=== PATIENT | female | born 1950 | race Caucasian/White ===

== ENCOUNTER 2016-12-19 13:24 | Emergency (ER) | payer SELFPAY ==
--- NOTE | 2016-12-19 16:36 | ED NURSING NOTES ---
Clinical Report - Nurses [facility] [place] [address] 12/19/2016 13:30 Patient: LOGAN DIAZ TRIAGE Triage time 13:11 Dec 19 2016. Acuity: LEVEL 3. Chief Complaint: ALTERED MENTAL STATUS. 13:12/19/16. Alert. No acute distress. SEPSIS SCREEN: Sepsis Screen. Negative (no infection suspected/documented). CHAO COMA SCORE: [place] Coma Scale: 15- eyes open spontaneously (4); best verbal response- oriented x 4 (5); best motor response- obeys commands (6). --13:29 Alicia Rock 13:12/19/16. BP: 122/61. HR: 68. RR: 21. O2 saturation: 100%. Temp: 98.0 F. Pain level now 0/10. --13:29 Alicia Rock 13:12/19/16. --13:29 Alicia Rock. Weight: 68 kg estimated. Height/Length: 64 inches Estimated. BMI: 25.8. --13:16 Alicia Rock. Medications Aspirin Oral (Tablet Chewable 81 mg) 1 tablet, daily. --13:26 Alicia Rock FLUoxetine HCl Oral 20 mg, 3x a day. --13:27 Alicia Rock Multivitamin Oral. --13:27 Alicia Rock Simvastatin Oral 10 mg, daily. --13:28 Alicia Rock HydrOXYzine HCl Oral 25 mg, 3x a day. --13:28 Alicia Rock. Medication/allergy information source: the patient's shelter record. --13:29 Alicia Rock. Allergies Penicillin. --13:13 Alicia Rock Tetracycline. --13:13 Alicia Rock Erythromycin. --13:13 Alicia Rock. History Arrived by EMS. Historian: EMS and patient. Primary physician (Constanza Denny). This started just prior to arrival. ( FAST exam negative. Patient disoriented to self, time, place, and event. EMS reports that patient usually ambulates with assistance. Patient found with feces on clothes and hands.). The patient has had trouble walking. Treatment MANAGER OF SCHOOL: Finger stick glucose performed (100). Temp: 98 (oral). End tidal CO2: 31. ( From [facility]. History of CVA and traumatic brain injury. Had trouble standing up, harder to arouse. FAST exam negative. Normally pt can follow commands better, today is decreased. Pt in sinus arrhythmia with PACs. EMS gave 400 mL fluids). SOCIAL HX: Smoker - current status unknown. FALL RISK ASSESSMENT: Fall risk assessment completed. Risk factors identified include patient impairment of cognition. Fall interventions initiated. Patient placed on stretcher. Side rails up x2. Brakes on Bed in low position. Patient visible from nurses' station. Call light in reach of patient. Instructed not to get up without assistance. --13:29 Alicia Rock PAST MEDICAL HX: Immunizations: status is unknown. --13:29 Alicia Rock. PROBLEMS: CVA - Cerebrovascular Accident. Traumatic Brain Injury. Depression. --13:28 Alicia Rock. Assessment The patient states feels the same. --13:29 Alicia Rock. Interventions ID band on patient. --13:29 Alicia Rock. 13:12/19/2016 Site #1 started prior to arrival by EMS via IV in the left antecubital space with an 18g angiocath. --13:11 Alicia Rock. PHYSICAL ASSESSMENT 13:29 12/19/16. To room via stretcher. Patient gowned. GENERAL / NEURO / PSYCH: Alert. Appears in no acute distress. The patient is disoriented to person, place, time and situation. Speech within normal limits. Patient appears unkempt. HEENT: Pupils equal, round and reactive to light. RESPIRATORY: Respirations not labored. CVS: Cardiac rhythm: sinus arrhythmia. Capillary refill less than 2 seconds. GI / : Abdomen soft and nontender. SKIN: Skin is warm and dry. Normal skin turgor. --13:29 Alicia Rock. NURSING PROGRESS NOTES 13:12/19/16. The plan of care for this patient has been created. fibre optics jointer, pulse oximeter and NIBP monitor placed on patient; monitor alarms on. Patient gowned. Head of bed elevated. Reassurance given. Two patient identifiers checked. Call light placed in reach. Side rails up x 2. Bed placed in lowest position. Brakes of bed on. Patient ready for evaluation- chart flagged and ED physician notified. --13:29 Alicia Rock 13:41 12/19/16. ( Patient's son contact for further information. Son states that she is normally disoriented and doesn't know her name or date of .). --13:41 Alicia Rock 14:00 12/19/2016 Started bag #1 1000 mL IV Fluids IV NS (Saline); at 500 mL/hr over 2 hour(s) via site #1 via IV pump. Allergies verified and confirmed 5 rights. IV patency established. IV site checked: no pain, redness, or swelling. IV flushed thoroughly pre- and post-medication administration (first 400 ml given by EMS). --14:29 Alicia Rock 14:08 12/19/16. ( Patient's care facility called for further information regarding the EMS call. Caregivers deny any change in level of consciousness, states that they called 911 after finding patient sitting on the ground outside. She has concerns for dehydration that the facility monitors. Patient occasionally experiences drops in BP as well as has a previously injured knee. Facility believes that patient may have reinjured knee as she was limping more.). --14:36 Alicia Rock 14:10 12/19/16. ( Patient ambulated with nurse and doctor assistance. Tolerated well without limping.). --14:29 Alicia Rock 14:20 12/19/16. Patient ID band checked for patient name and birthdate. Catheterized urine collected with return of yellow-colored cloudy urine; sample sent to lab. Specimen labeled in the presence of the patient (MITCHEL Chinchilla assisted with procedure.). ( Patient soiled on arrival to ED. Two RNs changed brief and cleaned. Feces had been spread through the depends.). --14:37 Alicia Rcok 14:38 12/19/16. BP: 122/52. HR: 59. RR: 18. O2 saturation: 98%. Pain level now 0/10. --14:38 Alicia Rock 15:26 12/19/16. BP: 117/53. HR: 61. RR: 14. O2 saturation: 99%. Pain level now 0/10. --15:26 Alicia Rock 15:58 12/19/16. BP: 121/72. HR: 71. RR: 15. O2 saturation: 98%. Pain level now 0/10. --15:58 Alciia Rock 15:03 12/19/2016 IV Fluids IV NS Discontinued: bag #1 infused. Total amount infused: 1000 mL. IV patency established. IV site checked: no pain, redness, or swelling. IV flushed thoroughly. --17:03 Alicia Rock 16:32 12/19/2016 Macrobid PO Capsules 100 mg given. Allergies verified and confirmed 5 rights. --16:32 Alicia Rock 16:36 12/19/16. ( Message left in voicemail for son stating he can call back for an update.). --16:36 Alicia Rock 16:58 12/19/2016 Site #1 removed upon discharge. Catheter intact. Pressure dressing applied. --17:03 Alicia Rock 17:00 12/19/16. ( Brief changed by RN and electronics repair technician.). --17:04 Alicia Rock. DISPOSITION / DISCHARGE 17:03 12/19/16. Condition at departure: improved. The goals identified in the patient's plan of care were met. Learning barriers note: TBI. Discharge instructions provided and reviewed (Transport crew). Reviewed medication(s). Prescription(s) given to the lagging machine operator (Macrobid). Reviewed referral to a primary care physician for followup. Written instructions provided in Stateless. Verbalized understanding (EMS). The patient was discharged by the physician. She was discharged ([facility]ult family home) and accompanied by EMS. She left the Emergency Department via ambulance and on a stretcher. FALL RISK ASSESSMENT: Fall risk assessment completed. No fall risk identified. --17:03 Alicia Rock 17:01 12/19/16. BP: 126/52. HR: 76. RR: 14. O2 saturation: 100% on room air. Temp: 97.9 F. Pain level now: 0/10. --17:03 Alicia Rock Departure time: 17:14 Dec 19 2016. --17:14 Alicia Rock. Locked/Released at 12/19/2016 18:38 by Alicia Rock,
--- NOTE | 2016-12-19 16:36 | ED CLINICAL REPORT ---
Clinical Report - Physicians/Mid Levels [facility] [address] [place] [address] 12/19/2016 13:30 Patient: LOGAN DIAZ Arrived- By ambulance. Historian- EMS personnel, guardian and prior authorization nurse. Evaluation limited Pt has a hx of closed head injury . History limited by intellectual disability. HISTORY OF PRESENT ILLNESS Chief Complaint: Possible fall and extremity injury. At its maximum, severity described as moderate. When seen in the E.D., it was gone. Modifying factors. Not worsened by anything. Not relieved by anything. This started today Pt lives in an assisted living house. She was found to be sitting on the grass in the yard of the facility. She is unable to tell if there was a fall.Her caregiver thought that she was limping when she walked. and the facility director asked that she be evaluated in the ED and is still present. (Unknown onset). No loss of appetite or weight loss. She has had visual disturbance. Similar symptoms previously: None. REVIEW OF SYSTEMS No cough, difficulty breathing, chest pain, abdominal pain or nausea. No vomiting or diarrhea. Caveat. ROS difficult to. PAST HISTORY PROBLEMS: CVA - Cerebrovascular Accident. Traumatic Brain Injury. Depression. Medications: HydrOXYzine HCl Oral 25 mg, 3x a day. Simvastatin Oral 10 mg, daily. Multivitamin Oral. FLUoxetine HCl Oral 20 mg, 3x a day. Aspirin Oral (Tablet Chewable 81 mg) 1 tablet, daily. Allergies: Erythromycin. Penicillin. Tetracycline. SOCIAL HISTORY No alcohol use or drug use. Resides in an assisted living center. ADDITIONAL NOTES The nursing notes have been reviewed. PHYSICAL EXAM Vital Signs: 12/19/2016 17:01 BP: 126/52. HR: 76. RR: 14. O2 saturation: 100%. Temp: 97.9 F. Pain level now: 0/10. 12/19/2016 15:58 BP: 121/72. HR: 71. RR: 15. O2 saturation: 98%. 12/19/2016 15:26 BP: 117/53. HR: 61. RR: 14. O2 saturation: 99%. 12/19/2016 14:38 BP: 122/52. HR: 59. RR: 18. O2 saturation: 98%. 12/19/2016 13:29 BP: 122/61. HR: 68. RR: 21. O2 saturation: 100%. Temp: 98.0 F. Appearance: Alert. No acute distress. Eyes: Pupils equal, round and reactive to light. ENT: Ears normal. Neck: Normal inspection. CVS: Normal heart rate and rhythm. Heart sounds normal. Respiratory: No respiratory distress. Breath sounds normal. Abdomen: No visible injury. Soft and nontender. Back: No CVA tenderness. Extremities: Right knee: mild tenderness and small abrasion located in the patella. No erythema, swelling, ecchymosis, puncture wound or foreign body. No limitation in ROM. Neuro: Altered mental status: disoriented to place and time. Eyes open spontaneously. Best verbal response: disoriented. Best motor response: obeys commands. LABS, X-RAYS, AND EKG Laboratory Tests: UA-Culture if indicated: (ABDULLAHI: 12/19/2016 14:16) ( MsgRcvd 12/19/2016 14:40) Final results Test Result Flag Units (Reference) URINE COLOR YELLOW URINE APPEARANCE SL CLOUDY URINE GLUCOSE NEGATIVE (NEGATIVE) URINE BILIRUBIN NEGATIVE (NEGATIVE) URINE KETONE 1+ (NEGATIVE) URINE SPECIFIC GRAVITY 1.025 (1.010-1.030) URINE PH 6.0 (5.0-8.0) URINE PROTEIN NEGATIVE (NEGATIVE) URINE UROBILINOGEN 2.0 EU/dL (0.2-1.0) The urobilinogen reagent area may react with interferingsubstances known to react with Fanny's reagent such asp-aminosalicylic acid and sulfonamides. Atypical colorreactions may be obtained in the presence of highconcentrations of p-aminobenzoic acid. The absence ofurobilinogen cannot be determined with this test. URINE NITRITE POSITIVE (NEGATIVE) URINE BLOOD NEGATIVE (NEGATIVE) URINE LEUK ESTERASE NEGATIVE (NEGATIVE) URINE RBC 0-1 rbc/hpf (0-1) URINE WBC 1-3 wbc/hpf (0-1) URINE EPITHELIAL CELLS 0-1 EPI/hpf (0-5) URINE BACTERIA MANY (4+) (NONE SEEN) URINE COMMENT CULTURE INDICATED URINE CULTURES ARE SET-UP BASED ON THE FOLLOWING CRITERIA:POSITIVE NITRITEPOSITIVE LEUKOCYTE ESTERASEGREATER THAN 10 WHITE BLOOD CELLSMODERATE (2+) OR GREATER BACTERIA CBC w Diff: (ABDULLAHI: 12/19/2016 14:35) ( [facility] 14[facility]47) Final results Test Result Flag Units (Reference) WHITE BLOOD COUNT 7.9 K/uL (4.5-11.5) RED BLOOD COUNT 4.42 M/uL (4.00-5.20) HEMOGLOBIN 12.4 gm/dL (12.0-16.0) HEMATOCRIT 37.7 % (36.0-46.0) MEAN CELL VOLUME 85 fL (80-100) MEAN CORPUSCULAR HGB 28 pg (26-34) MEAN CORPUSCULAR HGB CONC 33 g/dL (31-37) RED CELL DISTRIBUTION WIDTH 13.6 % (11.6-14.8) PLATELET COUNT 181 K/uL (150-400) NEUTROPHIL % 75.0 % (50-75) LYMPH % 15.7 L % (25-40) MONO % 8.0 % (3-14) EOSINOPHIL % 1.0 % (0-4) BASOPHIL % 0.3 % (0-2) CMP: (ABDULLAHI: 12/19/2016 14:35) ( RigRcvd 12/19/2016 15:12) Final results Test Result Flag Units (Reference) GLUCOSE 90 mg/dL (70-110) BUN 17 mg/dL (7-18) CREATININE 0.8 mg/dL (0.6-1.3) Estimated GFR >60 mL/min Estimated GFR- >60 mL/min Note: Persistent reduction over 3 months in eGFR<60 mL/min/1.73 m2 defines CKD. Patients with eGFR values>=60 mL/min/1.73 m2 may also have CKD if evidence ofpersistent proteinuria. Additional information may be foundat www.kidney.org. SODIUM 148 H mmol/L (136-145) POTASSIUM 3.6 mmol/L (3.5-5.1) CHLORIDE 108 H mmol/L (98-107) CARBON DIOXIDE 29 mmol/L (21-32) CALCIUM 8.9 mg/dL (8.5-10.1) TOTAL PROTEIN 6.3 L g/dL (6.4-8.2) ALBUMIN 3.7 g/dL (3.3-5.0) BILIRUBIN, TOTAL 1.0 mg/dL (0.0-1.0) ALKALINE PHOSPHATASE 46 U/L (46-116) AST (SGOT) 12 L U/L (15-37) ALT (SGPT) 19 U/L (12-78) Culture, Urine: (ABDULLAHI: 12/19/2016 14:16) ( MsgRcvd 12/21/2016 11:41) Final results Test Result Flag Units (Reference) CULTURE, URINE DATE: 12/21/16 PRELIM REPORT: FINAL REPORT -- ESCCOL QUANTITATIVE URINE GROWTH: GREATER THAN 100,000 CFU/mL AMOXICILLIN/CLAVULANATE AMPICILLIN S AMPICILLIN/SULBACTAM S CEFAZOLIN S CEFTRIAXONE S CEFEPIME S CEFUROXIME CIPROFLOXACIN S ERTAPENEM S GENTAMICIN S IMIPENEM S LEVOFLOXACIN S MEROPENEM S NITROFURANTOIN S TETRACYCLINE PIP/TAZO S TRIMETHOPRIM/SULFAMETHOXAZOLE S . PROGRESS AND PROCEDURES Course of Care: Pt has no evidence of upper or lower extremity injury. She walks with no hint of a limp. Systematic LE exam shows no injury. 15:38 12/19/16. Bacteruria. No need for X-ray 16:16 12/19/16. Discussed with Jose Daniel talent program manager [phone]. Disposition: Discharged. Condition: good. CLINICAL IMPRESSION Urinary tract infection (BACTERURIA). Probable fall. INSTRUCTIONS (MS DIAZ WALKS NORMALLY AND HAS EQUAL MILD KNEE TENDERNESS. NO EVIDENCE OF KNEE OR LEG INJURY THE LABS SHOW ONLY MILD ABNORMALITY THERE ARE AN ABNORMAL NUMBER OF BACTERIA IN THE URINE IMMEDIATE RECHECK IF NEW PROBLEMS FOLLOW UP WITH PCP UNLESS WELL IN 6 DAYS). Prescription Medications: Macrobid 100 mg: Take 1 capsule orally every 12 hours for 7 days. No refills. Substitution is permissible. (Electronically signed by Wallace Mcmullen MD 12/21/2016 13:36)
--- NOTE | 2016-12-19 16:36 | ED ORDER SUMMARY ---
..... Patient: LOGAN DIAZ OrderSheet [facility] VisitID: [id number] [address] [place] [address] 66y, F Registration Date/Time: 12/19/2016 ORDER SHEET Weight: 68.0 kg (estimated) Allergies: Penicillin, Tetracycline, Erythromycin GENERAL ORDERS: - (ROAD TEST I WOULD LIKE TO WATCH TOO.) (13:51 12/19/2016 Placido MEDINA) (14:28 ASchmuck) CBC w Diff Urgent (13:53 12/19/2016 Placido MEDINA) (Ack 14:04 Dex) (14:38 ASchmuck) CMP Urgent (13:53 12/19/2016 Placido MEDINA) (Ack 14:04 Dex) (14:38 ASchmuck) UA-Culture if indicated Urgent (13:53 12/19/2016 Placido MEDINA) (Ack 14:04 Dex) (14:28 ASchmuck) MEDICATION ORDERS: Macrobid PO 100 mg (NOW) (16:21 12/19/2016 Placido MEDINA) (16:32 ASchmuck) IV FLUIDS: IV NS : initial bolus none -, then 500 mL/hr for 2h (NOW); Urgent (13:51 12/19/2016 Placido MEDINA) (14:29 ASchmuck) ORDER SHEET NOTES: [Electronically signed by Alicia Rock (18:38 12/19/2016)] [Electronically signed by Wallace Mcmullen MD (13:36 12/21/2016)] [Electronically locked/signed by Alicia Rock (18:38 12/19/2016)]
--- NOTE | 2016-12-19 16:36 | ED CLINICAL REPORT ---
Clinical Report - Physicians/Mid Levels [facility] [address] [place] [address] 12/19/2016 13:30 Patient: LOGAN DIAZ Arrived- By ambulance. Historian- EMS personnel, guardian and fortune teller. Evaluation limited Pt has a hx of closed head injury . History limited by intellectual disability. HISTORY OF PRESENT ILLNESS Chief Complaint: Possible fall and extremity injury. At its maximum, severity described as moderate. When seen in the E.D., it was gone. Modifying factors. Not worsened by anything. Not relieved by anything. This started today Pt lives in an assisted living house. She was found to be sitting on the grass in the yard of the facility. She is unable to tell if there was a fall.Her caregiver thought that she was limping when she walked. and the facility director asked that she be evaluated in the ED and is still present. (Unknown onset). No loss of appetite or weight loss. She has had visual disturbance. Similar symptoms previously: None. REVIEW OF SYSTEMS No cough, difficulty breathing, chest pain, abdominal pain or nausea. No vomiting or diarrhea. Caveat. ROS difficult to. PAST HISTORY PROBLEMS: CVA - Cerebrovascular Accident. Traumatic Brain Injury. Depression. Medications: HydrOXYzine HCl Oral 25 mg, 3x a day. Simvastatin Oral 10 mg, daily. Multivitamin Oral. FLUoxetine HCl Oral 20 mg, 3x a day. Aspirin Oral (Tablet Chewable 81 mg) 1 tablet, daily. Allergies: Erythromycin. Penicillin. Tetracycline. SOCIAL HISTORY No alcohol use or drug use. Resides in an assisted living center. ADDITIONAL NOTES The nursing notes have been reviewed. PHYSICAL EXAM Vital Signs: 12/19/2016 17:01 BP: 126/52. HR: 76. RR: 14. O2 saturation: 100%. Temp: 97.9 F. Pain level now: 0/10. 12/19/2016 15:58 BP: 121/72. HR: 71. RR: 15. O2 saturation: 98%. 12/19/2016 15:26 BP: 117/53. HR: 61. RR: 14. O2 saturation: 99%. 12/19/2016 14:38 BP: 122/52. HR: 59. RR: 18. O2 saturation: 98%. 12/19/2016 13:29 BP: 122/61. HR: 68. RR: 21. O2 saturation: 100%. Temp: 98.0 F. Appearance: Alert. No acute distress. Eyes: Pupils equal, round and reactive to light. ENT: Ears normal. Neck: Normal inspection. CVS: Normal heart rate and rhythm. Heart sounds normal. Respiratory: No respiratory distress. Breath sounds normal. Abdomen: No visible injury. Soft and nontender. Back: No CVA tenderness. Extremities: Right knee: mild tenderness and small abrasion located in the patella. No erythema, swelling, ecchymosis, puncture wound or foreign body. No limitation in ROM. Neuro: Altered mental status: disoriented to place and time. Eyes open spontaneously. Best verbal response: disoriented. Best motor response: obeys commands. LABS, X-RAYS, AND EKG Laboratory Tests: UA-Culture if indicated: (ABDULLAHI: 12/19/2016 14:16) ( MsgRcvd 12/19/2016 14:40) Final results Test Result Flag Units (Reference) URINE COLOR YELLOW URINE APPEARANCE SL CLOUDY URINE GLUCOSE NEGATIVE (NEGATIVE) URINE BILIRUBIN NEGATIVE (NEGATIVE) URINE KETONE 1+ (NEGATIVE) URINE SPECIFIC GRAVITY 1.025 (1.010-1.030) URINE PH 6.0 (5.0-8.0) URINE PROTEIN NEGATIVE (NEGATIVE) URINE UROBILINOGEN 2.0 EU/dL (0.2-1.0) The urobilinogen reagent area may react with interferingsubstances known to react with Fanny's reagent such asp-aminosalicylic acid and sulfonamides. Atypical colorreactions may be obtained in the presence of highconcentrations of p-aminobenzoic acid. The absence ofurobilinogen cannot be determined with this test. URINE NITRITE POSITIVE (NEGATIVE) URINE BLOOD NEGATIVE (NEGATIVE) URINE LEUK ESTERASE NEGATIVE (NEGATIVE) URINE RBC 0-1 rbc/hpf (0-1) URINE WBC 1-3 wbc/hpf (0-1) URINE EPITHELIAL CELLS 0-1 EPI/hpf (0-5) URINE BACTERIA MANY (4+) (NONE SEEN) URINE COMMENT CULTURE INDICATED URINE CULTURES ARE SET-UP BASED ON THE FOLLOWING CRITERIA:POSITIVE NITRITEPOSITIVE LEUKOCYTE ESTERASEGREATER THAN 10 WHITE BLOOD CELLSMODERATE (2+) OR GREATER BACTERIA CBC w Diff: (ABDULLAHI: 12/19/2016 14:35) ( [facility] Final results Test Result Flag Units (Reference) WHITE BLOOD COUNT 7.9 K/uL (4.5-11.5) RED BLOOD COUNT 4.42 M/uL (4.00-5.20) HEMOGLOBIN 12.4 gm/dL (12.0-16.0) HEMATOCRIT 37.7 % (36.0-46.0) MEAN CELL VOLUME 85 fL (80-100) MEAN CORPUSCULAR HGB 28 pg (26-34) MEAN CORPUSCULAR HGB CONC 33 g/dL (31-37) RED CELL DISTRIBUTION WIDTH 13.6 % (11.6-14.8) PLATELET COUNT 181 K/uL (150-400) NEUTROPHIL % 75.0 % (50-75) LYMPH % 15.7 L % (25-40) MONO % 8.0 % (3-14) EOSINOPHIL % 1.0 % (0-4) BASOPHIL % 0.3 % (0-2) CMP: (ABDULLAHI: 12/19/2016 14:35) ( CagRcvd 12/19/2016 15:12) Final results Test Result Flag Units (Reference) GLUCOSE 90 mg/dL (70-110) BUN 17 mg/dL (7-18) CREATININE 0.8 mg/dL (0.6-1.3) Estimated GFR >60 mL/min Estimated GFR- >60 mL/min Note: Persistent reduction over 3 months in eGFR<60 mL/min/1.73 m2 defines CKD. Patients with eGFR values>=60 mL/min/1.73 m2 may also have CKD if evidence ofpersistent proteinuria. Additional information may be foundat www.kidney.org. SODIUM 148 H mmol/L (136-145) POTASSIUM 3.6 mmol/L (3.5-5.1) CHLORIDE 108 H mmol/L (98-107) CARBON DIOXIDE 29 mmol/L (21-32) CALCIUM 8.9 mg/dL (8.5-10.1) TOTAL PROTEIN 6.3 L g/dL (6.4-8.2) ALBUMIN 3.7 g/dL (3.3-5.0) BILIRUBIN, TOTAL 1.0 mg/dL (0.0-1.0) ALKALINE PHOSPHATASE 46 U/L (46-116) AST (SGOT) 12 L U/L (15-37) ALT (SGPT) 19 U/L (12-78) Culture, Urine: (ABDULLAHI: 12/19/2016 14:16) ( MsgRcvd 12/21/2016 11:41) Final results Test Result Flag Units (Reference) CULTURE, URINE DATE: 12/21/16 PRELIM REPORT: FINAL REPORT -- ESCCOL QUANTITATIVE URINE GROWTH: GREATER THAN 100,000 CFU/mL AMOXICILLIN/CLAVULANATE AMPICILLIN S AMPICILLIN/SULBACTAM S CEFAZOLIN S CEFTRIAXONE S CEFEPIME S CEFUROXIME CIPROFLOXACIN S ERTAPENEM S GENTAMICIN S IMIPENEM S LEVOFLOXACIN S MEROPENEM S NITROFURANTOIN S TETRACYCLINE PIP/TAZO S TRIMETHOPRIM/SULFAMETHOXAZOLE S . PROGRESS AND PROCEDURES Course of Care: Pt has no evidence of upper or lower extremity injury. She walks with no hint of a limp. Systematic LE exam shows no injury. 15:38 12/19/16. Bacteruria. No need for X-ray 16:16 12/19/16. Discussed with Jose Daniel manager language [phone]. Disposition: Discharged. Condition: good. CLINICAL IMPRESSION Urinary tract infection (BACTERURIA). Probable fall. INSTRUCTIONS (MS DIAZ WALKS NORMALLY AND HAS EQUAL MILD KNEE TENDERNESS. NO EVIDENCE OF KNEE OR LEG INJURY THE LABS SHOW ONLY MILD ABNORMALITY THERE ARE AN ABNORMAL NUMBER OF BACTERIA IN THE URINE IMMEDIATE RECHECK IF NEW PROBLEMS FOLLOW UP WITH PCP UNLESS WELL IN 6 DAYS). Prescription Medications: Macrobid 100 mg: Take 1 capsule orally every 12 hours for 7 days. No refills. Substitution is permissible. (Electronically signed by Wallace Mcmullen MD 12/21/2016 13:36)
--- NOTE | 2016-12-19 16:36 | ED ORDER SUMMARY ---
..... Patient: LOGAN DIAZ OrderSheet [facility] VisitID: [id number] [address] [place] [address] 66y, F Registration Date/Time: 12/19/2016 ORDER SHEET Weight: 68.0 kg (estimated) Allergies: Penicillin, Tetracycline, Erythromycin GENERAL ORDERS: - (ROAD TEST I WOULD LIKE TO WATCH TOO.) (13:51 12/19/2016 Placido MEDINA) (14:28 ASchmuck) CBC w Diff Urgent (13:53 12/19/2016 Placido MEDINA) (Ack 14:04 Dex) (14:38 ASchmuck) CMP Urgent (13:53 12/19/2016 Placido MEDINA) (Ack 14:04 Dex) (14:38 ASchmuck) UA-Culture if indicated Urgent (13:53 12/19/2016 Placido MEDINA) (Ack 14:04 Dex) (14:28 ASchmuck) MEDICATION ORDERS: Macrobid PO 100 mg (NOW) (16:21 12/19/2016 Placido MEDINA) (16:32 ASchmuck) IV FLUIDS: IV NS : initial bolus none -, then 500 mL/hr for 2h (NOW); Urgent (13:51 12/19/2016 Placido MEDINA) (14:29 ASchmuck) ORDER SHEET NOTES: [Electronically signed by Alicia Rock (18:38 12/19/2016)] [Electronically signed by Wallace Mcmullen MD (13:36 12/21/2016)] [Electronically locked/signed by Alicia Rock (18:38 12/19/2016)]
--- NOTE | 2016-12-19 16:36 | ED NURSING NOTES ---
Clinical Report - Nurses [facility] [place] [address] 12/19/2016 13:30 Patient: LOGAN DIAZ TRIAGE Triage time 13:11 Dec 19 2016. Acuity: LEVEL 3. Chief Complaint: ALTERED MENTAL STATUS. 13:12/19/16. Alert. No acute distress. SEPSIS SCREEN: Sepsis Screen. Negative (no infection suspected/documented). CHAO COMA SCORE: [place] Coma Scale: 15- eyes open spontaneously (4); best verbal response- oriented x 4 (5); best motor response- obeys commands (6). --13:29 Alicia Rock 13:12/19/16. BP: 122/61. HR: 68. RR: 21. O2 saturation: 100%. Temp: 98.0 F. Pain level now 0/10. --13:29 Alicia Rock 13:12/19/16. --13:29 Alicia Rock. Weight: 68 kg estimated. Height/Length: 64 inches Estimated. BMI: 25.8. --13:16 Alicai Rock. Medications Aspirin Oral (Tablet Chewable 81 mg) 1 tablet, daily. --13:26 Alicia oRck FLUoxetine HCl Oral 20 mg, 3x a day. --13:27 Alicia Rock Multivitamin Oral. --13:27 Alicia Rock Simvastatin Oral 10 mg, daily. --13:28 Alicia Rock HydrOXYzine HCl Oral 25 mg, 3x a day. --13:28 Alicia Rock. Medication/allergy information source: the patient's alf record. --13:29 Alicia Rock. Allergies Penicillin. --13:13 Alicia Rock Tetracycline. --13:13 Alicia Rock Erythromycin. --13:13 Alicia Rock. History Arrived by EMS. Historian: EMS and patient. Primary physician (Constanza Denny). This started just prior to arrival. ( FAST exam negative. Patient disoriented to self, time, place, and event. EMS reports that patient usually ambulates with assistance. Patient found with feces on clothes and hands.). The patient has had trouble walking. Treatment PATCH WORKER: Finger stick glucose performed (100). Temp: 98 (oral). End tidal CO2: 31. ( From [facility]. History of CVA and traumatic brain injury. Had trouble standing up, harder to arouse. FAST exam negative. Normally pt can follow commands better, today is decreased. Pt in sinus arrhythmia with PACs. EMS gave 400 mL fluids). SOCIAL HX: Smoker - current status unknown. FALL RISK ASSESSMENT: Fall risk assessment completed. Risk factors identified include patient impairment of cognition. Fall interventions initiated. Patient placed on stretcher. Side rails up x2. Brakes on Bed in low position. Patient visible from nurses' station. Call light in reach of patient. Instructed not to get up without assistance. --13:29 Alicia Rock PAST MEDICAL HX: Immunizations: status is unknown. --13:29 Alicia Rock. PROBLEMS: CVA - Cerebrovascular Accident. Traumatic Brain Injury. Depression. --13:28 Alicia Rock. Assessment The patient states feels the same. --13:29 Alicia Rock. Interventions ID band on patient. --13:29 Alicia Rock. 13:12/19/2016 Site #1 started prior to arrival by EMS via IV in the left antecubital space with an 18g angiocath. --13:11 Alicia Rock. PHYSICAL ASSESSMENT 13:29 12/19/16. To room via stretcher. Patient gowned. GENERAL / NEURO / PSYCH: Alert. Appears in no acute distress. The patient is disoriented to person, place, time and situation. Speech within normal limits. Patient appears unkempt. HEENT: Pupils equal, round and reactive to light. RESPIRATORY: Respirations not labored. CVS: Cardiac rhythm: sinus arrhythmia. Capillary refill less than 2 seconds. GI / : Abdomen soft and nontender. SKIN: Skin is warm and dry. Normal skin turgor. --13:29 Alicia Rock. NURSING PROGRESS NOTES 13:12/19/16. The plan of care for this patient has been created. campus monitor, pulse oximeter and NIBP monitor placed on patient; monitor alarms on. Patient gowned. Head of bed elevated. Reassurance given. Two patient identifiers checked. Call light placed in reach. Side rails up x 2. Bed placed in lowest position. Brakes of bed on. Patient ready for evaluation- chart flagged and ED physician notified. --13:29 Alicia Rock 13:41 12/19/16. ( Patient's son contact for further information. Son states that she is normally disoriented and doesn't know her name or date of .). --13:41 Alicia Rock 14:00 12/19/2016 Started bag #1 1000 mL IV Fluids IV NS (Saline); at 500 mL/hr over 2 hour(s) via site #1 via IV pump. Allergies verified and confirmed 5 rights. IV patency established. IV site checked: no pain, redness, or swelling. IV flushed thoroughly pre- and post-medication administration (first 400 ml given by EMS). --14:29 Alicia Rock 14:08 12/19/16. ( Patient's care facility called for further information regarding the EMS call. Caregivers deny any change in level of consciousness, states that they called 911 after finding patient sitting on the ground outside. She has concerns for dehydration that the facility monitors. Patient occasionally experiences drops in BP as well as has a previously injured knee. Facility believes that patient may have reinjured knee as she was limping more.). --14:36 Alicia Rock 14:10 12/19/16. ( Patient ambulated with nurse and doctor assistance. Tolerated well without limping.). --14:29 Alicia Rock 14:20 12/19/16. Patient ID band checked for patient name and birthdate. Catheterized urine collected with return of yellow-colored cloudy urine; sample sent to lab. Specimen labeled in the presence of the patient (MITCHEL Chinchilla assisted with procedure.). ( Patient soiled on arrival to ED. Two RNs changed brief and cleaned. Feces had been spread through the depends.). --14:37 Alicia Rock 14:38 12/19/16. BP: 122/52. HR: 59. RR: 18. O2 saturation: 98%. Pain level now 0/10. --14:38 Alicia Rock 15:26 12/19/16. BP: 117/53. HR: 61. RR: 14. O2 saturation: 99%. Pain level now 0/10. --15:26 Alicia Rock 15:58 12/19/16. BP: 121/72. HR: 71. RR: 15. O2 saturation: 98%. Pain level now 0/10. --15:58 Alicia Rock 15:03 12/19/2016 IV Fluids IV NS Discontinued: bag #1 infused. Total amount infused: 1000 mL. IV patency established. IV site checked: no pain, redness, or swelling. IV flushed thoroughly. --17:03 Alicia Rock 16:32 12/19/2016 Macrobid PO Capsules 100 mg given. Allergies verified and confirmed 5 rights. --16:32 Alicia Rock 16:36 12/19/16. ( Message left in voicemail for son stating he can call back for an update.). --16:36 Alicia Rock 16:58 12/19/2016 Site #1 removed upon discharge. Catheter intact. Pressure dressing applied. --17:03 Alicia Rock 17:00 12/19/16. ( Brief changed by RN and endoscopic technician.). --17:04 Alicia Rock. DISPOSITION / DISCHARGE 17:03 12/19/16. Condition at departure: improved. The goals identified in the patient's plan of care were met. Learning barriers note: TBI. Discharge instructions provided and reviewed (Transport crew). Reviewed medication(s). Prescription(s) given to the audio visual facilities engineer (Macrobid). Reviewed referral to a primary care physician for followup. Written instructions provided in Malawian. Verbalized understanding (EMS). The patient was discharged by the physician. She was discharged (Adult family home) and accompanied by EMS. She left the Emergency Department via ambulance and on a stretcher. FALL RISK ASSESSMENT: Fall risk assessment completed. No fall risk identified. --17:03 Alicia Rock 17:01 12/19/16. BP: 126/52. HR: 76. RR: 14. O2 saturation: 100% on room air. Temp: 97.9 F. Pain level now: 0/10. --17:03 Alicia Rock Departure time: 17:14 Dec 19 2016. --17:14 Alicia Rock. Locked/Released at 12/19/2016 18:38 by Alicia Rock,
--- NOTE | 2016-12-21 13:36 | ED MAR SUMMARY ---
..... Medication Administration Record [facility] [address] [place] [address] Patient: LOGAN DIAZ Visit ID: [id number] 66y, F Weight: 68.0 kg Height/Length: 64 in BMI: 25.8 ALLERGIES: Erythromycin, Tetracycline, Penicillin Start 14:00 12/19/2016 Alicia Rock,, Stop 15:03 12/19/2016 Alicia Rock, Medication Administered: IV NS (SALINE), Dose: IV Fluids over 2 hour(s), Rate: 500 mL/hr, Dispensed: 1000 mL bag, Site: #1 left AC. Medication Ordered: IV NS : initial bolus none -, then 500 mL/hr for 2h (NOW); Urgent. Given 16:32 12/19/2016 Alicia Rock, Medication Administered: MACROBID [PO], Dose: 100 mg Capsules PO. Medication Ordered: Macrobid PO 100 mg (NOW).
--- NOTE | 2016-12-21 13:36 | ED DISCHARGE INSTRUCTIONS ---
Patient: LOGAN DIAZ General Instructions [facility] VisitID: [id number] [place] [address] 66y, F Registration Date/Time: 12/19/2016 Urinary tract infection (BACTERURIA). Probable fall. INSTRUCTIONS (MS DIAZ WALKS NORMALLY AND HAS EQUAL MILD KNEE TENDERNESS. NO EVIDENCE OF KNEE OR LEG INJURY THE LABS SHOW ONLY MILD ABNORMALITY THERE ARE AN ABNORMAL NUMBER OF BACTERIA IN THE URINE IMMEDIATE RECHECK IF NEW PROBLEMS FOLLOW UP WITH PCP UNLESS WELL IN 6 DAYS). Prescription Medications: Macrobid 100 mg: Take 1 capsule orally every 12 hours for 7 days. No refills. Substitution is permissible. ADDITIONAL INFORMATION Bladder Infection,Female (Adult) A bladder infection ("cystitis" or "UTI") usually causes a constant urge to urinate and a burning when passing urine. Urine may be cloudy, smelly or dark. There may be pain in the lower abdomen. A bladder infection occurs when bacteria from the vaginal area enter the bladder opening (urethra). This can occur from sexual intercourse, wearing tight clothing, dehydration and other factors. Home Care: Drink lots of fluids (at least 6-8 glasses a day, unless you must restrict fluids for other medical reasons). This will force the medicine into your urinary system and flush the bacteria out of your body. Avoid sexual intercourse until your symptoms are gone. Avoid caffeine, alcohol and spicy foods. These can irritate the bladder. A bladder infection is treated with antibiotics. You may also be given Pyridium (generic = phenazopyridine) to reduce the burning sensation. This medicine will cause your urine to become a bright orange color. The orange urine may stain clothing. You may wear a pad or panty-liner to protect clothing. Preventing Future Infections: Always wipe from front to back after a bowel movement. Keep the genital area clean and dry. Drink plenty of fluids each day to avoid dehydration. Both sexual partners should wash before intercourse. Urinate right after intercourse to flush out the bladder. Wear cotton underwear and cotton-lined panty hose; avoid tight-fitting pants. If you are on control pills and are having frequent bladder infections, discuss with your doctor. Follow Up: Return to this facility or see your doctor if ALL symptoms are not gone after three days of treatment. Get Prompt Medical Attention if any of the following occur: Fever of 100.4F (38C) or higher, or as directed by your healthcare provider No improvement by the third day of treatment Increasing back or abdominal pain Repeated vomiting; unable to keep medicine down Weakness, dizziness or fainting Vaginal discharge Pain, redness or swelling in the labia (outer vaginal area) You have been given the following additional information: Bladder Infection, Female (Adult) (Electronically signed by Wallace Mcmullen MD 12/21/2016 13:36)
--- NOTE | 2016-12-21 13:36 | ED MED RECONCILIATION SUMMARY ---
Patient: LOGAN DIAZ Medication Reconciliation Report [facility] VisitID: [id number] [place] [address] 66y, F Registration Date/Time: 12/19/2016 Weight: 68.0 kg Height/Length: 64 in. BMI: 25.8 ALLERGIES: Erythromycin, Penicillin, Tetracycline The patient's Home Medications are listed below: THE FOLLOWING MEDICATIONS NEED TO BE RECONCILED: Aspirin Oral (81 mg) 1 tablet, daily FLUoxetine HCl Oral 20 mg, 3x a day HydrOXYzine HCl Oral 25 mg, 3x a day Multivitamin Oral Simvastatin Oral 10 mg, daily The source(s) of the original Home Medication information: patient's halfway record The following Medications were given to the patient in the Emergency Department: IV NS IV Fluids bolus 0, then 500 mL/hr, administered: 12/19/2016 2:00:00 PM Macrobid [PO] PO 100 mg, administered: 12/19/2016 4:32:00 PM The following Medications were prescribed to the patient: Macrobid 100 mg: Take 1 capsule orally every 12 hours for 7 days. No refills. Substitution is permissible. -- Wallace Mcmullen MD
--- NOTE | 2016-12-21 13:36 | ED MAR SUMMARY ---
..... Medication Administration Record [facility] [address] [place] [address] Patient: LOGAN DIAZ Visit ID: [id number] 66y, F Weight: 68.0 kg Height/Length: 64 in BMI: 25.8 ALLERGIES: Erythromycin, Tetracycline, Penicillin Start 14:00 12/19/2016 Alicia Rock,, Stop 15:03 12/19/2016 Alicia Rock, Medication Administered: IV NS (SALINE), Dose: IV Fluids over 2 hour(s), Rate: 500 mL/hr, Dispensed: 1000 mL bag, Site: #1 left AC. Medication Ordered: IV NS : initial bolus none -, then 500 mL/hr for 2h (NOW); Urgent. Given 16:32 12/19/2016 Alicia Rock, Medication Administered: MACROBID [PO], Dose: 100 mg Capsules PO. Medication Ordered: Macrobid PO 100 mg (NOW).
--- NOTE | 2016-12-21 13:36 | ED MED RECONCILIATION SUMMARY ---
Patient: LOGAN DIAZ Medication Reconciliation Report [facility] VisitID: [id number] [place] [address] 66y, F Registration Date/Time: 12/19/2016 Weight: 68.0 kg Height/Length: 64 in. BMI: 25.8 ALLERGIES: Erythromycin, Penicillin, Tetracycline The patient's Home Medications are listed below: THE FOLLOWING MEDICATIONS NEED TO BE RECONCILED: Aspirin Oral (81 mg) 1 tablet, daily FLUoxetine HCl Oral 20 mg, 3x a day HydrOXYzine HCl Oral 25 mg, 3x a day Multivitamin Oral Simvastatin Oral 10 mg, daily The source(s) of the original Home Medication information: patient's long-term record The following Medications were given to the patient in the Emergency Department: IV NS IV Fluids bolus 0, then 500 mL/hr, administered: 12/19/2016 2:00:00 PM Macrobid [PO] PO 100 mg, administered: 12/19/2016 4:32:00 PM The following Medications were prescribed to the patient: Macrobid 100 mg: Take 1 capsule orally every 12 hours for 7 days. No refills. Substitution is permissible. -- Wallace Mcmullen MD
== END 2016-12-19 17:14 | disposition home or self-care (01) ==
LOC: ED SRH 13:24
DX: N39.0 Urinary tract infection, site not specified (principal); X58.XXXA Exposure to other specified factors, initial encounter; Y93.9 Activity, unspecified; Y92.9 Unspecified place or not applicable; Y99.9 Unspecified external cause status; Z87.820 Personal history of traumatic brain injury; Z79.899 Other long term (current) drug therapy; Z88.0 Allergy status to penicillin; Z88.1 Allergy status to other antibiotic agents
CPT/HCPCS: 81460; 90004; 90100; 90148; 90469; 95059